=== PATIENT | male | born 1955 | race Caucasian/White ===

== ENCOUNTER 2017-08-08 12:07 | Emergency (ER) | payer OTHER ==
[~2017-08-08] VITALS: Ht 175.3 cm; Wt 68.8 kg
[2017-08-08 12:08] VITALS: TEMP 36.5; Ht 175.3 cm; Wt 68.8 kg
[2017-08-08] MEDS ORDERED: ACETAMINOPHEN 500 MG TAB PO STA (12:31)
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
[2017-08-08 14:46] VITALS: BP 124/86; PULSE 78; O2SAT 99
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
== END 2017-08-08 14:48 | disposition home or self-care (01) ==
LOC: EDBD 12:07 → C.EDA 12:08
DX: S06.0X0A Concussion without loss of consciousness, initial encounter (principal); S16.1XXA Strain of muscle, fascia and tendon at neck level, initial encounter; V43.52XA Car driver injured in collision with other type car in traffic accident, initial encounter; Y92.410 Unspecified street and highway as the place of occurrence of the external cause